=== PATIENT | female | born 1965 | race Caucasian/White ===

== ENCOUNTER 2016-06-14 16:27 | Emergency (ER) | payer OTHER ==
[~2016-06-14] VITALS: Ht 160 cm; Wt 120.0 kg
[~2016-06-14 16:27] MED LIST: ACET250T3 PO; DIOV320T PO; ESCI20TA PO; FURO20TA PO; HYDR12.56 PO; NIFE30TA2 PO
[2016-06-14 16:29] VITALS: BP 269/131; PULSE 95; RESP 14; TEMP 98; O2SAT 100
--- NOTE | 2016-06-14 17:42 | PD ---
HPI Chief Complaint: Hypertension Time Seen by Provider: 17:22 Travel History International Travel<30 days: No Contact w/Intl Traveler<30days: No Traveled to known affect area: No History of Present Illness HPI 51yo F with PMH of pseudotumor cerebri, HTN presents to the ED with c/o elevated blood pressure. Pt went to [facility] last week for elevated blood pressure and was given medication to decreased her blood pressure but not prescribed any medication for blood pressure. She used to take lisinopril but has not had any blood pressure medication for a long time. Pt has a new insurance and has an appointment with her new PMD tomorrow. Pt has been having chronic headache for 2 years with intermittent therapeutic LP. Pt was seen at [place] [facility] 01/05/16 for her headache and was evaluated by neurosurgery Dr. Main but did not follow up for possible [employer] shunt. Pt denies any new visual changes, focal weakness or numbness, fever, chest pain, sob, n/v, abdominal pain. PFSH Past Medical History Hypertension: Yes Triglycerides - High: Yes Past Surgical History Cholecystectomy: Yes Hysterectomy: Yes Other Surgery: Yes (EAR OPERATIONS RIGHT EAR) Social History Alcohol Use: No Tobacco Use: No Substance Use: No Allergies-Medications (Allergen,Severity, Reaction): Coded Allergies: No Known Allergies (Unverified , 06/14/16) Reported Meds & Prescriptions Reported Meds & Active Scripts Active Review of Systems Except as stated in HPI: all other systems reviewed are Neg Physical Exam Narrative GENERAL: 51yo F not in distress. SKIN: Warm and dry. HEAD: Atraumatic. Normocephalic. EYES: Pupils equal and round at 3mm bilaterally. EOMI. No scleral icterus. No injection or drainage. ENT: No nasal bleeding or discharge. Mucous membranes pink and moist. NECK: Trachea midline. No JVD. CARDIOVASCULAR: Regular rate and rhythm. No murmur appreciated. RESPIRATORY: No accessory muscle use. Clear to auscultation. Breath sounds equal bilaterally. GASTROINTESTINAL: Abdomen soft, non-tender, nondistended. MUSCULOSKELETAL: No obvious deformities. No clubbing. No cyanosis. No edema. NEUROLOGICAL: Awake and alert. No obvious cranial nerve deficits. Motor grossly within normal limits. Normal speech. PSYCHIATRIC: Appropriate mood and affect; insight and judgment normal. Data Data Last Documented VS Vital Signs Date Time Temp Pulse Resp B/P Pulse Ox O2 Delivery O2 Flow Rate FiO2 06/14/16 19:15 80 18 208/94 97 Room Air 06/14/16 16:[address] Brain W/O Iv Contrast(Rout) (06/14/16 ) Hydralazine Inj (Apresoline Inj) (06/14/16 17:45) Complete Blood Count With Diff (06/14/16 17:42) Basic Metabolic Panel (Bmp) (06/14/16 17:42) Prothrombin Time / Inr (Pt) (06/14/16 17:42) Act Partial Throm Time (Ptt) (06/14/16 17:42) Clonidine (Catapres) (06/14/16 18:45) Ketorolac Inj (Toradol Inj) (06/14/16 18:45) Ed Poc Ultrasound (06/14/16 ) Clonidine (Catapres) (06/14/16 19:30) Labs Laboratory Tests Test 06/14/16 18:03 White Blood Count 5.9 TH/MM3 Red Blood Count 4.83 MIL/MM3 Hemoglobin 12.7 GM/DL Hematocrit 37.1 % Mean Corpuscular Volume 76.9 FL Mean Corpuscular Hemoglobin 26.2 PG Mean Corpuscular Hemoglobin 34.1 % Concent Red Cell Distribution Width 15.2 % Platelet Count 215 TH/MM3 Mean Platelet Volume 9.9 FL Neutrophils (%) (Auto) 59.0 % Lymphocytes (%) (Auto) 30.2 % Monocytes (%) (Auto) 8.5 % Eosinophils (%) (Auto) 1.3 % Basophils (%) (Auto) 1.0 % Neutrophils # (Auto) 3.5 TH/MM3 Lymphocytes # (Auto) 1.8 TH/MM3 Monocytes # (Auto) 0.5 TH/MM3 Eosinophils # (Auto) 0.1 TH/MM3 Basophils # (Auto) 0.1 TH/MM3 CBC Comment DIFF FINAL Differential Comment Prothrombin Time 10.2 SEC Prothromb Time International 0.9 RATIO Ratio Activated Partial 23.8 SEC Thromboplast Time Sodium Level 139 MEQ/L Potassium Level 4.0 MEQ/L Chloride Level 105 MEQ/L Carbon Dioxide Level 25.4 MEQ/L Anion Gap 9 MEQ/L Blood Urea Nitrogen 13 MG/DL Creatinine 0.72 MG/DL Estimat Glomerular Filtration 85 ML/MIN Rate Random Glucose 93 MG/DL Calcium Level 8.6 MG/DL [facility] Medical Decision Making Medical Screen Exam Complete: Yes Emergency Medical Condition: Yes Differential Diagnosis Hypertensive bleed vs. hypertensive emergency vs. chronic headache from pseudotumor cerebri Narrative Course 51yo F with chronic HTN noncompliant with medication, pseudotumor cerebri here with c/o elevated blood pressure. Pt has chronic headache that feels like her normal headache for 2 years. Denies any new visual changes or focal neurologic deficits. Labs reviewed, no leukocytosis. Creatinine normal at 0.72. CT brain unremarkable. Bedside ultrasound showed optic nerve diameter borderline high at 0.5cm on right and 0.42cm on left. Pt with no papilledema. Pt given toradol with some improvement of headache. Given hydralazine 10mg and clonidine 0.2 mg for HTN. Procedures Procedure Narrative Emergency department ocular ultrasound was performed with patient consent. Linear probe was used in the transverse and sagittal views of the orbit without evidence of retinal detachment, vitreous hemorrhage, or lens dislocation. Right optic nerve was borderline high at 0.5cm and left optic nerve at 0.42cm. Diagnosis Primary Impression: Chronic hypertension Additional Impression: Pseudotumor cerebri Referrals: Palomo Marques PhD 1 day h/o pseudotumor cerebri with chronic headache Patient Instructions: General Instructions Departure Forms: Tests/Procedures Additional Instructions: Please follow up with neurology in 1-2 days. Return to the ED if symptoms worsen. Please follow up with your PMD on your appointment time tomorrow. Med/Other Pt SpecificInfo: Prescription(s) given Scripts Clonidine 0.1 Mg Tab0.1 Mg PO DAILY 7 Days Ref 0 Prov:Bekah Aguilar DO 06/14/16 Lisinopril 10 Mg Tab10 Mg PO DAILY 10 Days Ref 0 Prov:Bekah Aguilar DO 06/14/16 Disposition: 01 DISCHARGE HOME Condition: Stable JeffBekah DO Jun 14, 2016 17:42
[2016-06-14 17:45] VITALS: BP 219/105
[2016-06-14] MEDS ORDERED: hydrALAZINE HCL 20 MG/ML VIAL IV PUSH ONE (17:45)
--- NOTE | 2016-06-14 18:06 | RADRPT ---
EXAM DATE/TIME: 06/14/2016 17:56 [facility] COMPARISON: CT BRAIN W/O CONTRAST, January 04, 2016, 21:36. INDICATIONS : Cephalgia with hypertension. RADIATION DOSE: 43.85 CTDIvol (mGy) MEDICAL HISTORY : Hypertension. SURGICAL HISTORY : None. ENCOUNTER: Initial ACUITY: 1 day PAIN SCALE: 8/10 LOCATION: Right cranial TECHNIQUE: Multiple contiguous axial images were obtained of the head. Using automated exposure control and adj ustment of the mA and/or kV according to patient size, radiation dose was kept as low as reasonably a chievable to obtain optimal diagnostic quality images. FINDINGS: CEREBRUM: The ventricles are normal for age. No evidence of midline shift, mass lesion, hemorrhage or acute in farction. No extra-axial fluid collections are seen. POSTERIOR FOSSA: The cerebellum and brainstem are intact. The 4th ventricle is midline. The cerebellopontine angle i s unremarkable. EXTRACRANIAL: The visualized portion of the orbits is intact. SKULL: The calvaria is intact. No evidence of skull fracture. CONCLUSION: The study remains unremarkable. Claude Bateman MD on June 14, 2016 at 18:03 Board Certified Radiologist. This report was verified electronically.
[2016-06-14 18:10] VITALS: BP 216/106; PULSE 78; RESP 18; O2SAT 97
[2016-06-14 18:13] LABS: AUTOMATED NEUTROPHIL # 3.5 TH/MM3 (1.8-7.7); BASOPHIL # 0.1 TH/MM3 (0-0.2); EOSINOPHIL # 0.1 TH/MM3 (0-0.4); EOSINOPHIL % 1.3 % (0.0-4.0); HEMATOCRIT 37.1 % (35.0-46.0); HEMO FLAGS DIFF FINAL; LYMPH % 30.2 % (9.0-44.0); LYMPHOCYTE # 1.8 TH/MM3 (1.0-4.8); MEAN CELL VOLUME 76.9 FL (80.0-100.0); MEAN CORPUSCULAR HEMOGLOBIN 26.2 PG (27.0-34.0); MEAN CORPUSCULAR HGB CONC 34.1 % (32.0-36.0); MONO % 8.5 % (0.0-8.0); PLATELET COUNT 215 TH/MM3 (150-450); RED BLOOD COUNT 4.83 MIL/MM3 (4.00-5.30); RED CELL DISTRIBUTION WIDTH 15.2 % (11.6-17.2); WHITE BLOOD COUNT 5.9 TH/MM3 (4.0-11.0)
[2016-06-14 18:27] LABS: APTT (PATIENT) 23.8 SEC (24.3-30.1); INTERNATIONAL NORMALIZED RATIO 0.9 RATIO; PROTHROMBIN TIME - PATIENT 10.2 SEC (9.8-11.6)
[2016-06-14] MEDS ORDERED: cloNIDine HCL 0.1 MG TAB PO ONE ×2 (18:45→19:30)
[2016-06-14] MEDS ORDERED: KETOROLAC TROMETHAMINE 30 MG/ML (IVP) VIAL IV PUSH ONE (18:45)
[2016-06-14 18:50] LABS: BICARBONATE 25.4 MEQ/L (21.0-32.0)
[2016-06-14 19:15] VITALS: BP 208/94; PULSE 80; RESP 18; O2SAT 97
[2016-06-14] MEDS ORDERED: CLON0.1T PO (19:42)
[2016-06-14] MEDS ORDERED: LISI10TA3 PO (19:42)
[2016-06-14 20:20] VITALS: BP 203/95; PULSE 93; RESP 18; O2SAT 98
[2016-06-15] MEDS ORDERED: LISI-515 PO (16:56)
[2016-06-15] MEDS ORDERED: HYDR12.56 PO (16:56)
[2016-06-15] MEDS ORDERED: LISI10TA3 PO (16:56)
== END 2016-06-14 20:59 | disposition home or self-care (01) ==
LOC: NEPA 16:27
DX: I10 Essential (primary) hypertension (principal); G93.2 Benign intracranial hypertension; R51 Headache; Z91.14 Patient's other noncompliance with medication regimen
CPT/HCPCS: 70450; 80048; 85025; 85610; 85730; 96374; 96375; 99284; J0360; J1885

== ENCOUNTER 2016-06-15 13:35 | Emergency (ER) | payer OTHER ==
[~2016-06-15] VITALS: Ht 160 cm; Wt 120.0 kg
[~2016-06-15 13:35] MED LIST changes: -ACET250T3 PO; +CLON0.1T PO; -DIOV320T PO; -ESCI20TA PO; -FURO20TA PO; -HYDR12.56 PO; +LISI10TA3 PO; -NIFE30TA2 PO
[2016-06-15 13:37] VITALS: BP 237/137; PULSE 108; RESP 16; TEMP 98.2; O2SAT 98
[2016-06-15 16:15] VITALS: BP 156/96
[2016-06-15] MEDS ORDERED: cloNIDine HCL 0.2 MG TAB PO ONE (16:15)
[2016-06-15] MEDS ORDERED: NIFEdipine 10 MG CAP PO ONE (16:15)
[2016-06-15] MEDS ORDERED: HYDR12.56 PO (16:56)
[2016-06-15] MEDS ORDERED: LISI10TA3 PO (16:56)
[2016-06-15] MEDS ORDERED: LISI-515 PO (16:56)
--- NOTE | 2016-06-15 17:02 | PD ---
HPI Chief Complaint: Hypertension Time Seen by Provider: 15:52 Travel History International Travel<30 days: No Contact w/Intl Traveler<30days: No Traveled to known affect area: No History of Present Illness HPI This patient complains of difficult to control blood pressure. She was seen here yesterday for the same thing. She was written prescriptions that she did not fill. She went to her primary doctor today and her blood pressure is elevated and she was told to come here. Denies any acute physical symptoms. She does have mild underlying chronic headache which is not any different than usual. Severity is mild. No alleviating factors PFSH Past Medical History Cardiovascular Problems: Yes (HBP) Diminished Hearing: No Hypertension: Yes Triglycerides - High: Yes Tetanus Vaccination: < 5 Years Influenza Vaccination: Yes ?: Not Past Surgical History Cholecystectomy: Yes Hysterectomy: Yes Other Surgery: Yes (EAR OPERATIONS RIGHT EAR) Social History Alcohol Use: No Tobacco Use: No Substance Use: No Allergies-Medications (Allergen,Severity, Reaction): Coded Allergies: No Known Allergies (Unverified , 06/15/16) Reported Meds & Prescriptions Reported Meds & Active Scripts Active Lisinopril 20 Mg Tab 20 Mg PO DAILY Hydrochlorothiazide 12.5 Mg Tab 12.5 Mg PO DAILY Lisinopril 10 Mg Tab 10 Mg PO DAILY 10 Days Clonidine (Clonidine HCl) 0.1 Mg Tab 0.1 Mg PO DAILY 7 Days Review of Systems General / Constitutional: No: Fever Cardiovascular: No: Chest Pain or Discomfort Respiratory: No: Cough Physical Exam Narrative GENERAL: Well-nourished, well-developed patient in no apparent distress. SKIN: Warm and dry. HEAD: Atraumatic. Normocephalic. EYES: Pupils equal and round. No scleral icterus. No injection or drainage. ENT: No nasal bleeding or discharge. Mucous membranes pink and moist. NECK: Trachea midline. No JVD. CARDIOVASCULAR: Regular rate and rhythm. No murmur appreciated. RESPIRATORY: No accessory muscle use. Clear to auscultation. Breath sounds equal bilaterally. GASTROINTESTINAL: Abdomen soft, non-tender, nondistended. Hepatic and splenic margins not palpable. MUSCULOSKELETAL: No obvious deformities. No clubbing. No cyanosis. No edema. NEUROLOGICAL: Awake and alert. No obvious cranial nerve deficits. Motor grossly within normal limits. Normal speech. PSYCHIATRIC: Appropriate mood and affect; insight and judgment normal. Data Data Last Documented VS Vital Signs Date Time Temp Pulse Resp B/P Pulse Ox O2 Delivery O2 Flow Rate FiO2 06/15/16 16:15 156/96 06/15/16 16:09 18 98 Room Air 06/15/16 13:37 98.2 108 Orders Clonidine (Catapres) (06/15/16 16:15) Nifedipine (Procardia) (06/15/16 16:15) MDM Medical Decision Making Medical Screen Exam Complete: Yes Emergency Medical Condition: Yes Medical Record Reviewed: Yes Differential Diagnosis Accelerated hypertension, noncompliance, elevated BP Narrative Course I have reviewed the patient's electronic medical record. Reviewed her visit from last night On recheck after a dose of clonidine and Procardia her blood pressures 178/81 She feels well I prescribed her one month of both lisinopril at higher dose 20 g daily and hydrochlorothiazide. This is the medicine she used to take She does have a few clonidine for when necessary needs Follow-up with primary care and track pressures closely Diagnosis Primary Impression: Accelerated hypertension Additional Instructions: The patient was advised to follow up with their physician and return if they worsen. Check and record blood pressure daily Med/Other Pt SpecificInfo: Prescription(s) given Scripts Lisinopril 20 Mg Tab20 Mg PO DAILY #30 TAB Ref 0 Prov:Pedro Grant MD 06/15/16 Hydrochlorothiazide 12.5 Mg Tab12.5 Mg PO DAILY #30 TAB Ref 0 Prov:Pedro Grant MD 06/15/16 Lisinopril 10 Mg Tab10 Mg PO DAILY 10 Days Ref 0 Prov:Pedro Grant MD 06/15/16 Disposition: 01 DISCHARGE HOME Condition: Stable Pedro Grant MD Jun 15, 2016 17:01
[2016-06-15 17:20] VITALS: BP 172/86; TEMP 98
== END 2016-06-15 17:20 | disposition home or self-care (01) ==
LOC: NEPB 13:35
DX: I10 Essential (primary) hypertension (principal); R51 Headache; E78.1 Pure hyperglyceridemia
CPT/HCPCS: 99283